=== PATIENT | female | born 1960 | race Two or more races ===

== ENCOUNTER 2018-08-12 14:37 | Emergency (ER) | payer MEDICAID, OTHER ==
[~2018-08-12] VITALS: Ht 162.6 cm; Wt 78.9 kg
[~2018-08-12 14:37] MED LIST: CIPRO500 MG PO; NKM; ZANTAC150 MG ORAL
[2018-08-12 14:43] VITALS: BP 149/81
[2018-08-12] MEDS ORDERED: PROPRANOLOL HCL20 MG ORAL (14:50)
[2018-08-12] MEDS ORDERED: ASPIR-LOW81 MG ORAL (14:50)
[2018-08-12] MEDS ORDERED: PROPRANOLOL HCL80 M2 PO (15:06)
--- NOTE | 2018-08-12 15:25 | Emergency Room Report ---
History of Present Illness General Chief Complaint: Upper Respiratory Illness Source: Patient Present Illness HPI 57-year-old female patient presents to ER with multiple complaints. Patient states that she has been having a cough with shortness of breath for the past few days. Reports dry cough, denies persist. Reports chest pain during cough, states pain is reproducible. Reports pain has been present for one month, states that she saw her primary care provider one month ago and had a cardiac workup which was negative at that time, states however she began taking high blood pressure medication, states she takes propanolol. Reports that she had flu like symptoms last week, states she took flu medication at that time is feeling better. Denies fever currently. Denies recent travel. Denies calf pain. Denies neck pain. Denies vomiting or diarrhea. Reports constipation symptoms, states last bowel movement yesterday, reports no blood in diarrhea. Requesting medication for gas. Denies abdominal pain. Allergies: Coded Allergies: No Known Allergies (Unverified , 04/17/13) Patient History Past Medical History: see triage record Reviewed Nursing Documentation: PMH: Agreed; PSxH: Agreed Nursing Documentation-PMH Past Medical History: No History, Except For Hx Hypertension: Yes Review of Systems All Other Systems: negative except mentioned in HPI Physical Exam Vital Signs Date Time Temp Pulse Resp B/P (MAP) Pulse Ox O2 Delivery O2 Flow Rate FiO2 08/12/18 14:43 98.4 97 19 149/81 98 Room Air Sp02 EP Interpretation: reviewed, normal General Appearance: well appearing, no apparent distress, alert, GCS 15, non- toxic Head: normocephalic, atraumatic Eyes: bilateral eye normal inspection, bilateral eye PERRL ENT: hearing grossly normal, normal pharynx, no angioedema, normal voice, uvula midline, moist mucus membranes Neck: full range of motion Respiratory: lungs clear, no rhonchi, no respiratory distress, no accessory muscle use, no wheezing, decreased breath sounds, speaking full sentences, other - chest TTP over upper chest Cardiovascular #1: regular rate, rhythm, no edema Cardiovascular #2: 2+ radial (R), 2+ radial (L) Gastrointestinal: normal bowel sounds, non tender, soft, no mass, non-distended , no guarding, no pulsatile mass, no rebound Genitourinary: no CVA tenderness Musculoskeletal: back normal, digits/nails normal, gait/station normal, normal range of motion, non-tender Neurologic: alert, oriented x3, responsive, motor strength/tone normal, sensory intact Psychiatric: mood/affect normal Skin: no rash Medical Decision Making PA Attestation Dr. Dorantes is my supervising Physician whom patient management has been discussed with. Diagnostic Impression: Primary Impression: Bronchitis Additional Impressions: Non-cardiac chest pain Constipation ER Course Pt. presents to the ED c/o cough with reproducible chest pain and constipation. Ddx considered but are not limited to URI, CA, CHF, PE, constipation, SBO, costochondritis, pericarditis, bronchitis. On PE, chest is TTP; chest pain likely musculoskeletal in nature secondary to cough, does not require cardiac workup at this time. Patient instructed to take NSAIDs as needed for pain symptoms. normal bowel sounds, denies abdominal pain, low suspicion for SBO. Low suspicion for PE per well's criteria, no tachycardia, no calf pain, no recent periods of immobilization, no hemoptysis, no smoking. Vital signs: are WNL, pt. is afebrile ER COURSE: Provided with simethicone and Tylenol for pain symptoms. Provided patient with Duoneb breathing treatment due to breathing complaints. following breathing treatment, patient reports breathing symptoms improved, lung sounds improved, no wheezing, rhonchi or rales. Will discharge patient home with albuterol and prednisone, denies hx of diabetes. Provide with cough medication at home. CXR negative for acute disease, no consolidation, no fever, low suspicion for pneumonia. EKG shows no ST elevations Due to unremarkable EKG and CXR, low suspicion for cardiac etiology of symptoms , does not require cardiac work up. KUB shows no acute disease, normal gas bowel pattern, stool noted in vault. Will provide patient with Lactulose for constipation symptoms. Drink plenty of fluids. High fiber diet. Return to ER if symptoms worsen. Followup with GI specialist. DISCHARGE: At this time pt is stable for d/c to home. Patient is resting comfortably, in no acute distress, nontoxic appearing, talking without difficulty. Patient to take medications as instructed Will provide with patient care instructions and any necessary prescriptions. Care plan and follow-up instructions provided. Patient instructed to follow-up with primary care provider in 3 - 5 days. Patient questions asked and answered. Patient reports understanding and agreement to treatment plan. ER precautions given. Patient instructed to return to ER immediately for any new or worsening of symptoms including but not limited to increasing SOB, persistent fever, chest pain, intractable vomiting. - Please note that this Emergency Department Report was dictated using [employer] psychologist technology software, occasionally this can lead to erroneous entry secondary to interpretation by the dictation equipment. EKG Diagnostic Results Rate: normal Rhythm: NSR ST Segments: no acute changes ASA given to the pt in ED: Yes NANCY ScribJenny Willson PA-C Rhythm Strip Diag. Results EP Interpretation: yes Rate: 79 Rhythm: NSR, no PVC's, no ectopy PA Scribe Kirk Willson PA-C Chest X-Ray Diagnostic Results Chest X-Ray Diagnostic Results : Chest X-Ray Ordered: Yes # of Views/Limited/Complete: 1 View Indication: Chest Pain EP Interpretation: Yes PA Xray: Interpretation reviewed, by supervising MD, and agrees with findings. Interpretation: no consolidation, no effusion, no pneumothorax, no acute cardiopulmonary disease Impression: No acute disease NANCY Scribe Kirk Willson PA-C Other X-Ray Diagnostic Results Other X-Ray Diagnostic Results : X-Ray ordered: KUB # of Views/Limited Vs Complete: 2 View Indication: Pain EP Interpretation: Yes PA Xray: Interpretation reviewed, by supervising MD, and agrees with findings. Interpretation: no dislocation, no soft tissue swelling, no fractures, nonspecific bowel gas Impression: No acute disease NANCY Scribe Kirk Willson PA-C Last Vital Signs Date Time Temp Pulse Resp B/P (MAP) Pulse Ox O2 Delivery O2 Flow Rate FiO2 08/12/18 14:43 98.4 97 19 149/81 98 Room Air Status: improved Disposition: HOME, SELF-CARE Condition: Stable Scripts Benzonatate* (TESSALON PERLE*) 100 Mg Capsule 100 MG ORAL THREE TIMES A DAY, #20 PERLE Prov: Sanjiv Willson P.A. 08/12/18 Lactulose (LACTULOSE*) 20 Gm/30 Ml Solution 30 ML ORAL DAILY, #90 ML 0 Refills Prov: Sanjiv Willson P.A. 08/12/18 Albuterol Sulfate* (ALBUTEROL SULFATE MDI*) 8.5 Gm Hfa.aer.ad 2 PUFF INH Q6H, #1 INH 0 Refills Prov: Sanjiv Willson P.A. 08/12/18 Prednisone* (PREDNISONE*) 20 Mg Tablet 40 MG ORAL DAILY for 5 Days, #10 TAB Prov: Sanjiv Willson 08/12/18 Patient Instructions: Acute Bronchitis, [id number], Constipation, Adult, Easy -to-Read, Nonspecific Chest Pain, [id number] Additional Instructions: Followup with primary care provider in 3 -5 days. discuss further referral to cardiology as needed. Drink plenty of fluids. High-fiber diet. Take medications as directed. take Tylenol for pain symptoms. Patient questions asked and answered. ER precautions given, patient instructed to return to ER immediately for any new or worsening of symptoms. Sanjiv Willson Aug 12, 2018 15:25
[2018-08-12] MEDS ORDERED: Simethicone 80mg tab ORAL ONE (15:30)
[2018-08-12] MEDS ORDERED: Albuterol/Ipratropium 3ml neb HHN ONE (15:30)
[2018-08-12] MEDS ORDERED: Acetaminophen 500mg (ES) tab ORAL ONE (15:30)
[2018-08-12] MEDS ORDERED: LACTULOSE20 GM/301 ORAL (16:33)
[2018-08-12] MEDS ORDERED: ALBUTEROL SULF8.5 GM INH (16:33)
[2018-08-12] MEDS ORDERED: TESSALON PERLE100 MG ORAL (16:33)
[2018-08-12] MEDS ORDERED: PREDNISONE20 MG ORAL (16:33)
[2018-08-12 16:48] VITALS: BP 149/81
--- NOTE | 2018-08-12 17:00 | Diagnostic Imaging Report ---
Indication: Abdominal pain Technique: Supine view of the abdomen Comparison: none Findings: Bowel gas pattern is unremarkable. There are cholecystectomy clips. No unusual masses or calcifications. Impression: No acute process
--- NOTE | 2018-08-12 17:05 | Diagnostic Imaging Report ---
Indication: Cough Technique: One view of the chest Comparison: none Findings: Lungs and pleural spaces are clear. Heart size is normal Impression: No acute process
--- NOTE | 2018-08-13 19:41 | Cardiology Report ---
APPROVED REPORT EKG Measurement Heart [id number] Normal sinus rhythm Normal ECG
== END 2018-08-12 16:45 | disposition home or self-care (01) ==
LOC: EMR 15:26
DX: J40 Bronchitis, not specified as acute or chronic (principal); R07.89 Other chest pain; K59.00 Constipation, unspecified; I10 Essential (primary) hypertension
CPT/HCPCS: 71045; 74018; 93005; 94640; 99284; J7620